=== PATIENT | male | born 1935 | race Caucasian/White ===

== ENCOUNTER 2019-09-26 04:41 | Emergency (ER) | payer MEDICARE, OTHER, SELFPAY ==
[2019-09-26 04:41] VITALS: BP 159/86; PULSE 93; RESP 18; TEMP 36.1; O2SAT 96; BMI 26.4
--- NOTE | 2019-09-26 04:45 | EKG12_ITS ---
Test Reason : GI PAIN Blood Pressure : / mmHG Vent. Rate : 099 BPM Atrial Rate : 099 BPM P-R Int : 210 ms QRS Dur : 082 ms QT Int : 350 ms P-R-T Axes : 035 -12 098 degrees QTc Int : 449 ms Sinus rhythm with 1st degree A-V block with occasional Premature ventricular complexes Nonspecific ST and T wave abnormality Abnormal ECG Confirmed by MICHELLE RAMIREZ, LENI ([id number]), staff editor MEAGHAN PERERA ([id number]) on 09/27/2019 10:34:43 AM Referred By: ORION Confirmed By:LUIS MARTINEZ MD
--- NOTE | 2019-09-26 04:45 | CT_ITS ---
We are attempting to reach an attending provider to discuss findings. An addendum with communication details will be sent when the communication is complete. STUDY: CT ABDOMEN AND PELVIS WITH CONTRAST REASON FOR EXAM: Male, 84 years old. BLOOD EMESIS X 3 RADIATION DOSAGE (If Supplied By Facility): CTDIvol = ( 13.22 ) mGy, DLP = ( 739.24 ) mGycm TECHNIQUE: Transaxial images were obtained from the dome of the diaphragm to the symphysis pubis without oral contrast. IV 100mL Isovue-300 was administered. Sagittal and coronal images were reconstructed. Individualized dose optimization techniques were used for this CT. COMPARISON: None. FINDINGS: The visualized lung bases are unremarkable. The visualized portions of the heart are within normal limits. Multiple cysts are seen in the liver largest measures 1.5 cm. Normal gallbladder and extrahepatic biliary system. Normal spleen. Normal pancreas. Normal bilateral adrenal glands. Multiple cysts are seen in the right kidney largest measures 4.5 cm. Normal left kidney. 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 Normal small intestine. There are multiple colonic diverticula consistent with diverticulosis. There is non-visualization of the appendix. There is diffuse atherosclerotic calcification of the abdominal aorta, without a demonstrated aneurysm. Normal inferior vena cava. Normal retroperitoneum. Normal urinary bladder. Normal abdominal wall. There are diffuse degenerative changes of the visualized lumbar spine. CT/Abdomen/Pelvis W IV Cont ONLY IMPRESSION: Findings suggestive of organoaxial gastric volvulus. Electronically Signed: Natalia Kaye, at 7:32 EST Tel , Service support ,
--- NOTE | 2019-09-26 04:51 | ED.VIS.GEN ---
History of Present Illness Chief Complaint: GI Bleed Informant: Patient Onset: Today Context: Gradual Onset Timing: Continuous Current Severity: Moderate Maximum Severity: Moderate Narrative: The patient is an 84-year-old male with history of esophageal reflux disease and hypercholesterolemia who presents to the emergency department with hematemesis. Patient states he was in his normal state of health. He states that normally, he really does not have any GI upset. He states because of the holiday, he was eating differently. He states he began to have some cramping pain and burning pain in his chest. He had an episode of emesis which was normal. He then had 2 more with what appeared to be bright red blood. He does describe some cramping pain in his abdomen. He denies any fevers or chills. He takes a baby aspirin but no other anticoagulants. Prior similar symptoms: No Recent Illness/Hospitalization: No Past Medical History - Allergies and Home Meds Allergies/Adverse Reactions: Allergies No Known Allergies Allergy (Verified 09/26/19 04:45) Primary Care Physician: [facility] Doctor,Out of [NON-STAFF] - Prior records reviewed: Yes Past Medical History: - - GERD, hypercholesterolemia Surgical History: noncontributory Smoking Status: Never smoker Review of Systems General: Denies: Chills, Fever, Sweats Eyes: Denies: Visual changes - bilaterally, Diplopia ENT: Denies: Rhinorrhea, Sore throat Cardiovascular: Denies: Chest pain, Palpitations Respiratory: Denies: Dyspnea, Cough, Dyspnea on exertion Gastrointestinal: Reports: Nausea, Vomiting. Denies: Abdominal pain, Diarrhea, Melena, Hematochezia Genitourinary: Denies: Dysuria, Hematuria, Frequency Musculoskeletal: Denies: Back pain, Extremity Pain Skin: Denies: Rash, Wounds Neurological: Denies: Headache, Weakness, Numbness Physical Exam Vital Signs/Narrative: Vital Signs Temp Pulse Resp BP Pulse Ox 09/26/19 04:41 97.0 F L 93 18 159/86 H 96 Inital Vital Signs reviewed: Yes General: Well nourished, Well developed, No Acute Distress Head: Normocephalic, Atraumatic Eyes: Perrl, EOMI ENT: Moist mucous membranes, No rhinorrhea Neck: Supple, Nontender Cardiovascular: Regular rate, Regular rhythm, No murmurs Respiratory: No distress, CTA bilaterally, Chest nontender Abdomen: Soft, Nontender, Nondistended, Normal bowel sounds Back: Nontender, Normal Inspection Extremities: Nontender, No edema Skin: Normal color, No rash Neurological: Alert, Oriented x3, Cranial nerves II-XII grossly intact, Normal Strength, Normal Sensation Psychological: Normal affect, Normal Mood Diagnostic/Tx/Re-eval Abnormal Lab Results 09/26/19 09/26/19 09/26/19 05:00 05:00 05:00 WBC 14.7 H RBC 5.18 Hgb 15.6 Hct 45.4 MCV 87.6 MCH 30.1 MCHC 34.4 RDW Std Deviation 41.7 RDW Coeff of Wally 13.1 Plt Count 208 MPV 11.0 Immature Gran % (Auto) 0.400 Neut % (Auto) 74.7 H Lymph % (Auto) 18.1 L Walton % (Auto) 6.0 Eos % (Auto) 0.3 Baso % (Auto) 0.5 Absolute Neuts (auto) 11.0 H Absolute Lymphs (auto) 2.67 Nucleated RBC % 0 PT 14.1 INR 1.1 APTT 27.9 Sodium 144 Potassium 3.4 L Chloride 105 Carbon Dioxide 30.0 Anion Gap 9 BUN 13 Creatinine 1.17 Estim Creat Clear Calc 45.47 Est GFR (MDRD) Af Amer 76 Est GFR (MDRD) Non-Af 63 BUN/Creatinine Ratio 11.1 Glucose 172 H Calcium 10.6 H Total Bilirubin 0.70 AST 18 ALT 24 Alkaline Phosphatase 76 Total Protein 7.6 Albumin 4.3 Globulin 3.3 Albumin/Globulin Ratio 1.3 Lipase 87 Blood Type Antibody Screen 09/26/19 05:00 WBC RBC Hgb Hct MCV MCH MCHC RDW Std Deviation RDW Coeff of Wally Plt Count MPV Immature Gran % (Auto) Neut % (Auto) Lymph % (Auto) Walton % (Auto) Eos % (Auto) Baso % (Auto) Absolute Neuts (auto) Absolute Lymphs (auto) Nucleated RBC % PT INR APTT Sodium Potassium Chloride Carbon Dioxide Anion Gap BUN Creatinine Estim Creat Clear Calc Est GFR (MDRD) Af Amer Est GFR (MDRD) Non-Af BUN/Creatinine Ratio Glucose Calcium Total Bilirubin AST ALT Alkaline Phosphatase Total Protein Albumin Globulin Albumin/Globulin Ratio Lipase Blood Type A POSITIVE Antibody Screen NEGATIVE Clinical Impression(s) from Imaging Studies Abdomen/Pelvis CT 09/26/19 04:45 IMPRESSION: Findings suggestive of organoaxial gastric volvulus. Electronically Signed: aNtalia Kaye, at 7:32 EST Tel , Service support , - Medical Decision Making The patient presents with midepigastric pain, nausea, vomiting, and reported hematemesis. He did have gastric contents in a bag. It was unsure if this was gross blood versus just coloring. We did send for gastric occult and it was negative. EKG was obtained which was sinus rhythm without acute ischemia. Screening labs show leukocytosis, but normal hemoglobin. Patient underwent CT of the abdomen and pelvis. This does show findings concerning for gastric volvulus. I did discuss the patient's care with Dr. Jensen, who deferred to a tertiary facility. The patient requested transfer to [facility]. This is currently in process. Impression 1. Reported hematemesis 2. Gastric volvulus ED Disposition - Plan for ED Patient: Referrals: [facility],Out of [NON-STAFF] -
[2019-09-26] MEDS: 0.9% Normal Saline 1,000 ML 1000 ML IV (05:00)
[2019-09-26] MEDS: Ondansetron 4 MG/2 ML Vial IV (05:02)
[2019-09-26 05:15] LABS: Absolute Lymphocyte Count 2.67 X10^3/uL (0.83-4.51); Basophil# 0.07 X10^3/uL; Basophil% 0.5 % (0-1); Eosinophil# 0.04 X10^3/uL; Eosinophils% 0.3 % (0-5); Hematocrit 45.4 % (40-54); Hemoglobin 15.6 g/dL (13.0-16.5); Lymphocyte # 2.67 X10^3/ul (4.0); Lymphocyte % 18.1 % (19-41); Mean Corp Hgb Conc 34.4 g/dL (32-36); Mean Corpuscular Hgb 30.1 pg (27.0-32.0); Mean Corpuscular Volume 87.6 fL (80-94); Monocyte# 0.89 X10^3/uL; NRBC Flagged by Analyzer 0 % (0-5); Neutrophil % 74.7 % (47-70); Platelet Count 208 K/mm3 (150-450); RBC Distribution Width CV 13.1 % (11.6-14.6); RBC Distribution Width SD 41.7 fl (35.1-43.9); Red Blood Count 5.18 M/mm3 (4.6-6.2); White Blood Count 14.7 K/mm3 (4.4-11.0)
[2019-09-26 05:27] LABS: International Normalized Ratio 1.1; Prothrombin Time (Protime)PT. 14.1 SECONDS (11.7-14.9)
[2019-09-26 05:28] LABS: Partial Thromboplast Time 27.9 Seconds (24.1-36.2)
[2019-09-26 05:37] LABS: ALB/GLOB Ratio 1.3 RATIO (0.9-2.4); AST(SGOT) 18 U/L (15-37); Alanine Aminotransfer ALT/SGPT 24 U/L (16-61); Albumin, Serum 4.3 g/dL (3.2-5.0); Alkaline Phosphatase 76 U/L (45-117); Anion Gap 9 (5-15); BUN 13 mg/dL (7-18); BUN/Creat Ratio 11.1 RATIO (10-20); Calcium,Total 10.6 mg/dL (8.5-10.1); Chloride 105 mmol/L (98-107); Creatinine, Serum 1.17 mg/dL (0.70-1.30); EST Glomerular Filtration Rate 63 mL/min (>60); Est Glom Filt Rate - Afr Amer 76 mL/min (>60); Estimated Creatinine Clearance 45.47 ml/min; Globulin 3.3 g/dL (2.2-4.2); Glucose 172 mg/dL (74-106); Lipase 87 U/L (73-393); Potassium 3.4 mmol/L (3.5-5.1); Protein, Total 7.6 g/dL (6.4-8.2); Sodium Level 144 mmol/L (136-145)
[2019-09-26 06:44] VITALS: BP 129/82; PULSE 85; RESP 18; O2SAT 95
[2019-09-26 08:13] VITALS: BP 107/89; PULSE 95; RESP 16; O2SAT 95
--- NOTE | 2019-09-26 08:27 | ED.RN ---
[facility] CARE HERE TO TRANSPORT PATIENT, CARE AND REPORT TO THEM, PT STATUS UNCHANGED AT THIS TIME.
== END 2019-09-26 08:38 | disposition short-term general hospital (02) ==
LOC: ED 05:04
PROVIDERS: Emergency Provider Emergency Medicine
DX: K56.2 Volvulus (principal); K92.0 Hematemesis; E78.00 Pure hypercholesterolemia, unspecified; K21.9 Gastro-esophageal reflux disease without esophagitis; Z79.82 Long term (current) use of aspirin; Z79.899 Other long term (current) drug therapy
CPT/HCPCS: 74177; 80053; 82271; 83690; 85025; 85610; 85730; 86850; 86900; 86901; 93005; 96365; 96375; 99285; J7030; J2405